=== PATIENT | female | born 1980 | race Two or more races ===

== ENCOUNTER 2022-09-09 00:29 | Emergency (ER) | payer OTHER ==
[~2022-09-09] VITALS: Ht 165.1 cm; Wt 65.8 kg
[2022-09-09] MEDS ORDERED: MECLIZINE HCL25 MG PO (03:06)
== END 2022-09-09 03:18 ==
LOC: ER 00:29
DX: R55 Syncope and collapse (principal); R11.2 Nausea with vomiting, unspecified